=== PATIENT | male | born 1980 ===

== ENCOUNTER 2024-10-29 18:13 | Emergency (ER) | payer OTHER ==
[~2024-10-29] VITALS: Ht 167.6 cm; Wt 76.2 kg
[2024-10-29] MEDS: SODIUM CHLORIDE 0.9% 1000ML 1,000 ML IV ONE (20:24)
[2024-10-29 22:24] VITALS: PULSE 75; RESP 19; TEMP 98.9
[2024-10-29 22:36] VITALS: BP 127/83; PULSE 75; RESP 19; TEMP 98.9; O2SAT 100
== END 2024-10-29 22:39 | disposition home or self-care (01) ==
LOC: FSED 19:45
DX: E86.0 Dehydration (principal); N28.9 Disorder of kidney and ureter, unspecified; I10 Essential (primary) hypertension; E11.9 Type 2 diabetes mellitus without complications; E03.9 Hypothyroidism, unspecified
CPT/HCPCS: 80053; 99284; J7030